=== PATIENT | male | born 1960 | race Caucasian/White ===

== ENCOUNTER → 2016-03-21 | Outpatient (CLI) | payer OTHER ==
[~2016-03-21] VITALS: Ht 162.6 cm; Wt 84.8 kg
[~2016-03-21] MED LIST: ALBU17IN INH; AMBI10TA PO; DOXA1TAB40 PO; IRON65TA PO; LIDOCAINE 2% INJ 100 MG/5 ML SDV (FOR ANES.) As Ordered ONE; LORA2CON5 PO; NS 1,000 ML IV SCH; OMEP10CASR PO; PARO20TA2 PO; PENT500C PO; PROPOFOL 200 MG/20 ML VIAL As Ordered ONE; SING10TA32 PO
--- NOTE | 2016-03-21 11:31 | ROOR ---
Patient Name: Ron Sanchez Procedure Date: 03/21/2016 11:19 AM Date of : 1960 Age: 56 Room: [facility] Gender: Male Note Status: Finalized Procedure: Upper GI endoscopy Indications: Dysphagia, Heartburn Providers: Herson ELLIOTT MD Referring MD: Lorne Arteaga MD Requesting Provider: Medicines: Monitored Anesthesia Care Complications: No immediate complications. Procedure: Pre-Anesthesia Assessment: - The heart rate, respiratory rate, oxygen saturations, blood pressure, adequacy of pulmonary ventilation, and response to care were monitored throughout the procedure. The Endoscope was introduced through the mouth, and advanced to the second part of duodenum. The upper GI endoscopy was accomplished without difficulty. The patient tolerated the procedure well. Findings: The Z-line was variable and was found 33 cm from the incisors. This was biopsied with a cold forceps for histology. A large hiatus hernia was present. The entire examined stomach was normal. The examined duodenum was normal. Impression: - Z-line variable, 33 cm from the incisors. Biopsied. - Large hiatus hernia. - Normal stomach. - Normal examined duodenum. Recommendation: - Continue present medications. - Telephone endoscopist for pathology results in 2 weeks. Herson Elliott MD Herson ELLIOTT MD 03/21/2016 11:30:50 AM This report has been signed electronically. Number of Addenda: 0 Note Initiated On: 03/21/2016 11:19 AM Estimated Blood Loss: Estimated blood loss: none.
--- NOTE | 2016-03-21 11:52 | ROOR ---
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 Procedure: Pre-Anesthesia Assessment: - The heart rate, respiratory rate, oxygen saturations, blood pressure, adequacy of pulmonary ventilation, and response to care were monitored throughout the procedure. The Colonoscope was introduced through the anus and advanced to the cecum, identified by appendiceal orifice and ileocecal valve. The colonoscopy was performed without difficulty. The patient tolerated the procedure well. The quality of the bowel preparation was inadequate. Findings: The perianal and digital rectal examinations were normal. (Colon Prep was POOR, Inadequate Visualisation) A 13 mm polypoid lesion was found in the sigmoid colon. The lesion was semi-pedunculated. This was biopsied with a cold forceps for histology. Multiple small and large-mouthed diverticula were found in the sigmoid colon. There was evidence of diverticular spasm. Inflammation characterized by erythema and friability was found in a continuous and circumferential pattern from the rectum to the descending colon. This was moderate in severity. Impression: - Preparation of the colon was inadequate. - A lipoma was seen in the proximal sigmoid colon. - Likely benign inflammatory polypoid lesion in the mid/distal sigmoid colon. Biopsied. - Moderate diverticulosis in the sigmoid colon. There was evidence of diverticular spasm. - Inflammation was found from the rectum to the descending colon secondary to proctosigmoid ulcerative colitis. Recommendation: - If the pathology report is benign, then repeat colonoscopy because the bowel preparation was suboptimal in 1 year. - Continue present medications. Herson Elliott MD Herson ELLIOTT MD 03/21/2016 11:51:53 AM This report has been signed electronically. Number of Addenda: 0 Note Initiated On: 03/21/2016 11:20 AM Estimated Blood Loss: Estimated blood loss: none.
[2016-03-21 12:10] VITALS: BP 131/65
== END | disposition home or self-care (01) ==
LOC: M OPP 09:55
PROVIDERS: ATTEND Internal Medicine Gastroenterology
DX: K51.30 Ulcerative (chronic) rectosigmoiditis without complications (principal); D12.5 Benign neoplasm of sigmoid colon; K57.30 Diverticulosis of large intestine without perforation or abscess without bleeding; R12 Heartburn; K22.8 Other specified diseases of esophagus; K44.9 Diaphragmatic hernia without obstruction or gangrene; M19.90 Unspecified osteoarthritis, unspecified site; F33.9 Major depressive disorder, recurrent, unspecified; J45.909 Unspecified asthma, uncomplicated; N40.0 Benign prostatic hyperplasia without lower urinary tract symptoms; Z79.899 Other long term (current) drug therapy; Z79.51 Long term (current) use of inhaled steroids

== ENCOUNTER → 2016-05-10 | Outpatient (CLI) | payer MEDICAID ==
[~2016-05-10] MED LIST changes: -LIDOCAINE 2% INJ 100 MG/5 ML SDV (FOR ANES.) As Ordered ONE; -NS 1,000 ML IV SCH; -PROPOFOL 200 MG/20 ML VIAL As Ordered ONE
== END ==
LOC: M OUTALCOH 13:52
PROVIDERS: ATTEND Psychiatry & Neurology Psychiatry
DX: Z13.9 Encounter for screening, unspecified (principal); F10.20 Alcohol dependence, uncomplicated

== ENCOUNTER → 2017-01-13 | Outpatient (CLI) | payer MEDICAID, OTHER ==
[~2017-01-13] MED LIST changes: -PARO20TA2 PO; +PARO20TA3 PO
--- NOTE | 2017-01-13 16:32 | REP ---
FACIAL BONES, FOUR VIEWS: HISTORY: Facial pain. COMPARISON: 08/16/2014. There is no acute fracture or bone lesion. The sinuses are clear. The patient is edentulous. The temporomandibular joints are not seen. IMPRESSION: There is no acute fracture or bone lesion.
== END ==
LOC: M CLY 14:24
PROVIDERS: ATTEND Family Medicine
DX: R51 Headache (principal)

== ENCOUNTER → 2017-03-21 | Outpatient (CLI) | payer OTHER | LOC: M ADMPAT 10:12 | DX: R12 Heartburn (principal); R13.10 Dysphagia, unspecified ==

== ENCOUNTER 2017-03-25 10:11 | Day surgery (SDC) | payer OTHER ==
[2017-03-25] MEDS: NS 1,000 ML IV (10:45)
[2017-03-25] MEDS ORDERED: PROPOFOL 200 MG/20 ML VIAL As Ordered (11:15)
[2017-03-25] MEDS ORDERED: LIDOCAINE 2% INJ 100 MG/5 ML SDV (FOR ANES.) As Ordered (11:15)
== END 2017-03-25 13:19 | disposition home or self-care (01) ==
LOC: M OPP 10:11
DX: K92.1 Melena (principal); Z86.010 Personal history of colon polyps; K51.40 Inflammatory polyps of colon without complications; K51.20 Ulcerative (chronic) proctitis without complications; K57.30 Diverticulosis of large intestine without perforation or abscess without bleeding; R12 Heartburn; R13.13 Dysphagia, pharyngeal phase; R13.12 Dysphagia, oropharyngeal phase; K22.70 Barrett's esophagus without dysplasia; K44.9 Diaphragmatic hernia without obstruction or gangrene; K21.9 Gastro-esophageal reflux disease without esophagitis; D64.9 Anemia, unspecified; M19.90 Unspecified osteoarthritis, unspecified site; M54.9 Dorsalgia, unspecified; F32.9 Major depressive disorder, single episode, unspecified; F41.9 Anxiety disorder, unspecified; J45.909 Unspecified asthma, uncomplicated; R06.83 Snoring; R06.02 Shortness of breath; N40.0 Benign prostatic hyperplasia without lower urinary tract symptoms; Z79.899 Other long term (current) drug therapy; Z80.0 Family history of malignant neoplasm of digestive organs
CPT/HCPCS: 45380

== ENCOUNTER 2017-08-09 20:21 | Emergency (ER) | payer OTHER ==
[2017-08-09] MEDS: NORCO 5/325MG TABLET (BULK FOR ED) PO (22:58)
== END 2017-08-09 23:02 | disposition home or self-care (01) ==
LOC: M ED 20:21
DX: S33.8XXA Sprain of other parts of lumbar spine and pelvis, initial encounter (principal); S20.229A Contusion of unspecified back wall of thorax, initial encounter; W01.10XA Fall on same level from slipping, tripping and stumbling with subsequent striking against unspecified object, initial encounter; Y92.9 Unspecified place or not applicable; Y93.89 Activity, other specified; Y99.9 Unspecified external cause status; J30.2 Other seasonal allergic rhinitis; J45.909 Unspecified asthma, uncomplicated; K57.92 Diverticulitis of intestine, part unspecified, without perforation or abscess without bleeding; N40.0 Benign prostatic hyperplasia without lower urinary tract symptoms; M79.9 Soft tissue disorder, unspecified; D75.9 Disease of blood and blood-forming organs, unspecified; F41.9 Anxiety disorder, unspecified; F32.9 Major depressive disorder, single episode, unspecified; Z79.899 Other long term (current) drug therapy
CPT/HCPCS: 72110

== ENCOUNTER → 2017-08-15 | Outpatient (CLI) | payer OTHER | LOC: M RAD 14:39 | DX: J32.0 Chronic maxillary sinusitis (principal); J34.2 Deviated nasal septum | CPT/HCPCS: 70486 ==

== ENCOUNTER → 2018-01-28 | Outpatient (CLI) | payer OTHER ==
[2018-01-28 12:03] LABS: BASO % 0.6 % (0.0-1.0); EOS # 0.2 10^3/uL (0.0-0.50); EOS % 3.3 % (0.0-3.0); HEMATOCRIT 37.6 % (42.0-52.0); HEMOGLOBIN 12.2 g/dl (13.5-17.5); IMMATURE GRANULOCYTE % 0.4 % (0-3.0); LYMPH # 1.1 10^3/uL (1.5-4.5); MEAN CORPUSCULAR HGB CONC 32.4 g/dl (32.0-36.5); MEAN CORPUSCULAR VOLUME 86.2 fl (80.0-96.0); MONO # 0.5 10^3/uL (0.0-0.8); NEUTROPHILS # 3.4 10^3/uL (1.8-7.7); NEUTROPHILS % 64.7 % (36.0-66.0); PLATELET COUNT, AUTOMATED 229 10^3/uL (150-450); RED BLOOD COUNT 4.36 10^6/uL (4.30-6.10); RED CELL DISTRIBUTION WIDTH 13.6 % (11.5-14.5); WHITE BLOOD COUNT 5.2 10^3/uL (4.0-10.0)
[2018-01-28 12:26] LABS: ALBUMIN 3.3 GM/DL (3.2-5.2); ALBUMIN/GLOBULIN RATIO 1.06 (1.00-1.93); ALKALINE PHOSPHATASE 98 U/L (45-117); ALT/SGPT 40 U/L (12-78); ANION GAP 7 MEQ/L (8-16); AST/SGOT 21 U/L (7-37); BILIRUBIN,TOTAL 0.4 MG/DL (0.2-1.0); BLOOD UREA NITROGEN 9 MG/DL (7-18); C REACTIVE PROTEIN QUANTITATIV < 0.30 MG/DL (0.00-0.30); CARBON DIOXIDE LEVEL 27 MEQ/L (21-32); CHLORIDE LEVEL 107 MEQ/L (98-107); CREATININE FOR GFR 0.85 MG/DL (0.70-1.30); GLOMERULAR FILTRATION RATE > 60.0 (>56); GLUCOSE, FASTING 94 MG/DL (70-100); MAGNESIUM LEVEL 2.1 MG/DL (1.8-2.4); POTASSIUM SERUM 4.3 MEQ/L (3.5-5.1); SODIUM LEVEL 141 MEQ/L (136-145); TOTAL PROTEIN 6.4 GM/DL (6.4-8.2)
[2018-01-28 12:41] LABS: ERYTHROCYTE SEDIMENTATION RATE 10 mm/hr (0-20)
== END ==
LOC: M LAB 10:55
DX: K51.30 Ulcerative (chronic) rectosigmoiditis without complications (principal)
CPT/HCPCS: 83735

== ENCOUNTER 2018-03-26 10:43 | Day surgery (SDC) | payer OTHER ==
[~2018-03-26] VITALS: Ht 162.6 cm; Wt 91.1 kg
[~2018-03-26 10:43] MED LIST changes: +ACAM0.05 PO; +AMOX500C PO; +APRI0.37 PO; +ATIV1TAB10 PO; +BUPR150T3 PO; +CARB20TA PO; +DEXI60CA2 PO; +FLOM0.4C39 PO; +FLON1SPR; +GABA-843 PO; +HYDR-3713 PO; +IMOD2TAB16 PO; +LIDOCAINE 2% INJ 100 MG/5 ML SDV (FOR ANES.) As Ordered ONE; +LORA-243 PO; +MELO15TA28 PO; +METH4PACK PO; +NYST50SS SS; +PROPOFOL 200 MG/20 ML VIAL As Ordered ONE; +REXU1TAB3 PO; +TRAZ-163 PO; +TRAZ1TAB14 PO; +VIIB40TA PO
[2018-03-26] MEDS ORDERED: NS 1,000 ML IV ONE (11:30)
--- NOTE | 2018-03-26 11:52 | ROOR ---
Patient Name: Ron Sanchez Procedure Date: 03/26/2018 11:37 AM Date of : 1960 Age: 58 Room: [facility] Gender: Male Note Status: Finalized Procedure: Upper GI endoscopy Indications: Surveillance for malignancy due to personal history of Dimas's esophagus, Heartburn Providers: Herson ALCOCER MD Referring MD: Lorne Arteaga MD Requesting Provider: Medicines: Monitored Anesthesia Care Complications: No immediate complications. Procedure: Pre-Anesthesia Assessment: - The heart rate, respiratory rate, oxygen saturations, blood pressure, adequacy of pulmonary ventilation, and response to care were monitored throughout the procedure. The Endoscope was introduced through the mouth, and advanced to the second part of duodenum. The upper GI endoscopy was accomplished without difficulty. The patient tolerated the procedure well. Findings: The Z-line was variable and was found 30 cm from the incisors. This was biopsied with a cold forceps for histology. A large hiatal hernia was found. The proximal extent of the gastric folds (end of tubular esophagus) was 30 cm from the incisors. The Z-line was a variable distance from incisors; the hiatal hernia was sliding. The exam of the stomach was otherwise normal. The examined duodenum was normal. Impression: - Z-line variable, 30 cm from the incisors. Biopsied. - Large hiatal hernia. - Stomach is otherwise normal. - Normal examined duodenum. Recommendation: - Continue present medications. - Repeat upper endoscopy in 3 years for surveillance. Herson Alcocer MD Herson ALCOCER MD 03/26/2018 11:51:31 AM This report has been signed electronically. Number of Addenda: 0 Note Initiated On: 03/26/2018 11:37 AM Estimated Blood Loss: Estimated blood loss: none.
[2018-03-26] MEDS ORDERED: PROPOFOL 200 MG/20 ML VIAL As Ordered ONE ×2 (11:56→12:08)
--- NOTE | 2018-03-26 12:20 | ROOR ---
Patient Name: Ron Sanchez Procedure Date: 03/26/2018 11:38 AM Date of : 1960 Age: 58 Room: [facility] Gender: Male Note Status: Finalized Procedure: Colonoscopy Indications: Hematochezia, Follow-up of chronic ulcerative proctosigmoiditis Providers: Herson ELLIOTT MD Referring MD: Lorne Arteaga MD Requesting Provider: Medicines: Monitored Anesthesia Care Complications: No immediate complications. Procedure: Pre-Anesthesia Assessment: - The heart rate, respiratory rate, oxygen saturations, blood pressure, adequacy of pulmonary ventilation, and response to care were monitored throughout the procedure. The Colonoscope was introduced through the anus and advanced to 15 cm into the ileum. The colonoscopy was performed without difficulty. The patient tolerated the procedure well. The quality of the bowel preparation was good. Findings: The perianal and digital rectal examinations were normal. Inflammation characterized by erythema was found in a continuous and circumferential pattern from the anus to the sigmoid colon. This was mild in severity, and when compared to previous examinations, the findings are quiescent. Biopsies were taken with a cold forceps for histology. A large polypoid lesion was found in the sigmoid colon. The lesion was semi-pedunculated. This was biopsied with a cold forceps for histology. The exam was otherwise normal throughout the examined colon. The terminal ileum appeared normal. Impression: - Proctosigmoid colitis. Inflammation was found from the anus to the mid sigmoid colon. This was mild in severity, quiescent compared to previous examinations. Biopsied. - Likely benign thick stalked prolapsing hemorrhagic pseudopolyp (2 cm) or inflamed lipoma in the sigmoid colon. Biopsied. - Diverticulosis in sigmoid colon. - Small Lipoma distal descending colon. - The examined portion of the ileum was normal. Recommendation: - Telephone endoscopist for pathology results in 2 weeks. Herson Elliott MD Herson ELLIOTT MD 03/26/2018 12:20:21 PM This report has been signed electronically. Number of Addenda: 0 Note Initiated On: 03/26/2018 11:38 AM Estimated Blood Loss: Estimated blood loss: none.
[2018-03-26 12:45] VITALS: BP 117/68
== END 2018-03-26 12:48 | disposition home or self-care (01) ==
LOC: M OPP 10:43
PROVIDERS: ATTEND Internal Medicine Gastroenterology
DX: K52.9 Noninfective gastroenteritis and colitis, unspecified (principal); D49.0 Neoplasm of unspecified behavior of digestive system; K92.1 Melena; K51.30 Ulcerative (chronic) rectosigmoiditis without complications; K22.8 Other specified diseases of esophagus; K44.9 Diaphragmatic hernia without obstruction or gangrene; K22.70 Barrett's esophagus without dysplasia; R12 Heartburn; Z79.82 Long term (current) use of aspirin; Z79.899 Other long term (current) drug therapy

== ENCOUNTER → 2018-04-29 | Outpatient (CLI) | payer OTHER ==
[~2018-04-29] MED LIST changes: -LIDOCAINE 2% INJ 100 MG/5 ML SDV (FOR ANES.) As Ordered ONE; -PROPOFOL 200 MG/20 ML VIAL As Ordered ONE
[2018-04-29 13:36] LABS: HEMATOCRIT 38.3 % (42.0-52.0); MEAN CORPUSCULAR HEMOGLOBIN 26.1 pg (27.0-33.0); MEAN CORPUSCULAR HGB CONC 31.3 g/dl (32.0-36.5); MEAN CORPUSCULAR VOLUME 83.4 fl (80.0-96.0); PLATELET COUNT, AUTOMATED 235 10^3/uL (150-450); RED BLOOD COUNT 4.59 10^6/uL (4.30-6.10); WHITE BLOOD COUNT 6.2 10^3/uL (4.0-10.0)
[2018-04-29 13:52] LABS: PERCENT SATURATION 12.8 % (19.7-50.0)
== END ==
LOC: M LAB 12:31
PROVIDERS: ATTEND Physician Assistant Medical
DX: D64.9 Anemia, unspecified (principal)

== ENCOUNTER → 2018-05-13 | Outpatient (CLI) | payer OTHER ==
[~2018-05-13] MED LIST changes: +GLUCAGON FOR INJ 1 MG VIAL (J1610) As Ordered ONE; +ISOVUE-370 76% 100ML VIAL (Q9967) As Ordered ONE; +VoLumen 0.1% SUSPENSION 450ML BOTTLE As Ordered ONE
--- NOTE | 2018-05-14 04:39 | REP ---
Clinical: Anemia. Technique: Axial contrast enhanced images with coronal and sagittal re-formations using enterography protocol including 100 ml Isovue 370 intravenous contrast material and low density oral intraluminal contrast. Findings: A moderate gastroesophageal hiatal hernia is identified. There is no evidence for bowel obstruction or acute inflammatory process. Diffuse colonic and predominantly sigmoid diverticulosis noted without evidence for acute diverticulitis. Normal cecum, terminal ileum, and appendix are identified in the right lower quadrant. Mucosal thickening involving the mid sigmoid colon (images [id number]) cannot be excluded and may warrant colonoscopy evaluation. 3.2 cm hepatic cyst identified in the left lobe. Spleen, pancreas, gallbladder, bilateral adrenal glands and kidneys are normal. Pelvis demonstrates normal bladder and age appropriate prostate/seminal vesicles with parenchymal calcifications noted. 3 cm fat containing periumbilical hernia identified along with small forming fat containing inguinal hernia (left greater than right). No ascites. No free air. No significant adenopathy. Abdominal aorta without aneurysm or dissection. Musculoskeletal structures appear intact and without focal osseous abnormality. Impression: 1. Moderate hiatal hernia. 2. Colonic and predominantly sigmoid diverticulosis without acute diverticulitis. 3. Mucosal thickening involving the mid sigmoid colon cannot be excluded and may warrant colonoscopy evaluation. 4. 3.2 cm benign appearing hepatic cyst may be followed by ultrasound. 5. Fat containing periumbilical hernia and subtle forming fat containing inguinal hernias (left greater than right). Electronically Signed by Edvin Garland MD 05/14/2018 04:30 A
== END ==
LOC: M RAD 11:27
PROVIDERS: ATTEND Physician Assistant Medical
DX: K44.9 Diaphragmatic hernia without obstruction or gangrene (principal); K57.90 Diverticulosis of intestine, part unspecified, without perforation or abscess without bleeding; K57.92 Diverticulitis of intestine, part unspecified, without perforation or abscess without bleeding; K42.9 Umbilical hernia without obstruction or gangrene; K40.90 Unilateral inguinal hernia, without obstruction or gangrene, not specified as recurrent; K76.89 Other specified diseases of liver; D64.9 Anemia, unspecified; K51.30 Ulcerative (chronic) rectosigmoiditis without complications
CPT/HCPCS: 74177; J1610; Q9967

== ENCOUNTER → 2018-10-19 | Outpatient (CLI) | payer OTHER ==
[~2018-10-19] MED LIST changes: -GLUCAGON FOR INJ 1 MG VIAL (J1610) As Ordered ONE; -ISOVUE-370 76% 100ML VIAL (Q9967) As Ordered ONE; -VoLumen 0.1% SUSPENSION 450ML BOTTLE As Ordered ONE
--- NOTE | 2018-10-19 19:30 | REP ---
REASON: Increasing shoulder pain. No trauma what so ever. PRIORS: None. There is mild AC joint DJD with slight asymmetric joint space narrowing. The glenohumeral relationship is within normal limits. There is no fracture, dislocation or subluxation. IMPRESSION:Chronic changes as described above. Electronically Signed by Tony Torres DO 10/20/2018 11:24 A
--- NOTE | 2018-10-20 09:31 | REP ---
REASON: Increasing neck pain. No trauma whatsoever. COMPARISON: 04/14/2009. Degenerative disc space narrowing is seen at every level. This has increased from the prior exam. There is anterior and posterior osteophytic ridging particularly at the C4-5 and C6-7 levels. This has increased. Even with the swimmers view the C7-T1 level cannot well assessed. The facet joints appear to be well aligned bilaterally. The intervertebral foramina are ample bilaterally. Flexion and extension is not particularly limited radiographically. The dens cannot be effectively evaluated secondary to the superimposition of osseous structures and/or dentition on all views. Although this plain radiographic evaluation of the cervical spine shows no evidence of a fracture, it should be remembered that CT is much more sensitive than plain radiography of the C-spine in detecting fractures. If this examination was ordered to rule out a fracture, then CT of the cervical spine is recommended. IMPRESSION: Chronic changes as described above. Electronically Signed by Tony Torres DO 10/20/2018 11:27 A
== END ==
LOC: M CLY 14:56
PROVIDERS: ATTEND Family Medicine
DX: M25.78 Osteophyte, vertebrae (principal); M25.712 Osteophyte, left shoulder

== ENCOUNTER → 2018-11-19 | Outpatient (CLI) | payer OTHER ==
--- NOTE | 2018-11-19 09:16 | REP ---
Clinical: Hepatic cystic disease. Technique: Real time watkins scale ultrasound examination using curved array transducer. Findings: A solitary simple appearing cyst is identified in the left hepatic lobe. 3.2 x 2.6 x 3.4 cm. No further hepatic lesion identified. Visualized portions of the pancreas are normal but limited due to interposed bowel gas. Gallbladder demonstrates layering sludge and small stones without wall thickening or pericholecystic fluid. No biliary ductal dilatation is appreciated and the common bile duct measures 4.6 mm diameter. The right kidney is normal in reniform shape without hydronephrosis and measures 10.2 x 5.9 x 5.3 cm. No ascites in the visualized right upper quadrant. Impression: 1. 3.4 cm hepatic cyst appears benign. 2. Cholelithiasis. Electronically Signed by Edvin Garland MD 11/19/2018 07:47 A
== END ==
LOC: M RAD 06:49
PROVIDERS: ATTEND Physician Assistant Medical
DX: Q44.6 Cystic disease of liver (principal)

== ENCOUNTER → 2018-11-25 | Outpatient (REF) | payer OTHER | LOC: M LAB REF 13:32 | PROVIDERS: ATTEND Internal Medicine Gastroenterology | DX: K51.319 Ulcerative (chronic) rectosigmoiditis with unspecified complications (principal) ==

== ENCOUNTER 2019-04-15 10:52 | Outpatient (CLI) | payer MEDICAID ==
[~2019-04-15] VITALS: Ht 162.6 cm; Wt 93.4 kg
[~2019-04-15 10:52] MED LIST changes: -TRAZ-163 PO; +TRAZ-257 PO
[2019-04-15 11:10] VITALS: BP 109/70
[2019-04-15] MEDS ORDERED: VEDOLIZUMAB 300 MG in NS 250 ML IV ONE (11:30)
[2019-04-15 12:30] VITALS: BP 116/67
== END 2019-04-15 12:30 | disposition home or self-care (01) ==
LOC: M INFU 10:52
PROVIDERS: ATTEND Internal Medicine Gastroenterology
DX: K51.90 Ulcerative colitis, unspecified, without complications (principal)
CPT/HCPCS: 96365; J3380

== ENCOUNTER 2019-05-17 10:28 | Outpatient (CLI) | payer OTHER ==
[~2019-05-17] VITALS: Ht 162.6 cm; Wt 93.4 kg
[2019-05-17 11:00] VITALS: BP 126/83
[2019-05-17] MEDS ORDERED: VEDOLIZUMAB 300 MG in NS 250 ML IV ONE (11:00)
[2019-05-17 12:12] VITALS: BP 128/69
== END 2019-05-17 12:15 | disposition home or self-care (01) ==
LOC: M INFU 10:28
PROVIDERS: ATTEND Internal Medicine Gastroenterology
DX: K51.90 Ulcerative colitis, unspecified, without complications (principal)
CPT/HCPCS: 96365; J3380

== ENCOUNTER → 2019-09-06 | Outpatient (CLI) | payer OTHER ==
[~2019-09-06] MED LIST changes: +DULO1CAP5 PO; +ENTY1INJ IV; +LOPE-39 PO; +VEDOLIZUMAB 300 MG in NS 250 ML IV ONE; +VENTAER INH
== END ==
LOC: M INFU 13:59
PROVIDERS: ATTEND Internal Medicine Gastroenterology
DX: K51.90 Ulcerative colitis, unspecified, without complications (principal); Z53.9 Procedure and treatment not carried out, unspecified reason

== ENCOUNTER 2019-09-13 10:07 | Outpatient (CLI) | payer OTHER ==
[~2019-09-13 10:07] MED LIST changes: -DULO1CAP5 PO; -LOPE-39 PO; -VEDOLIZUMAB 300 MG in NS 250 ML IV ONE; -VENTAER INH
[2019-09-13 11:02] VITALS: BP 122/58
[2019-10-28] MEDS ORDERED: APRI0.37 PO (15:11)
[2019-10-28] MEDS ORDERED: DULO1CAP5 PO (15:11)
[2019-10-28] MEDS ORDERED: VENTAER INH (15:11)
[2019-10-28] MEDS ORDERED: REXU1TAB3 PO (15:11)
[2019-10-28] MEDS ORDERED: LOPE-39 PO (15:11)
[2019-10-28] MEDS ORDERED: BUPR150T3 PO (15:11)
== END 2019-09-13 10:40 | disposition home or self-care (01) ==
LOC: M INFU 10:07
PROVIDERS: ATTEND Internal Medicine Gastroenterology
DX: K51.90 Ulcerative colitis, unspecified, without complications (principal)

== ENCOUNTER → 2019-10-24 | Outpatient (CLI) | payer OTHER ==
[~2019-10-24] MED LIST changes: +DULO1CAP5 PO; +LOPE-39 PO; +VENTAER INH
== END ==
LOC: M LABSMTC 10:20
PROVIDERS: ATTEND Anesthesiology
DX: Z11.59 Encounter for screening for other viral diseases (principal)
CPT/HCPCS: C9803; U0003

== ENCOUNTER 2019-10-29 12:38 | Day surgery (SDC) | payer OTHER ==
[~2019-10-29] VITALS: Ht 162.6 cm; Wt 92.9 kg
[~2019-10-29 12:38] MED LIST changes: +NS 1,000 ML IV ONE
[2019-10-29] MEDS ORDERED: fentaNYL 100 MCG/2 ML INJECTION (J3010) As Ordered ONE (13:55)
[2019-10-29] MEDS ORDERED: propofoL 200 MG/20 ML VIAL As Ordered ONE (13:55)
[2019-10-29] MEDS ORDERED: LIDOCAINE 2% 100MG/5ML SDV (FOR ANES.) As Ordered ONE (13:55)
[2019-10-29 14:44] VITALS: BP 133/86
--- NOTE | 2019-11-10 11:36 | ROOR ---
Patient Name: Ron Sanchez Procedure Date: 10/29/2019 10:04 AM Date of : 1960 Age: 59 Room: [facility] Gender: Male Note Status: Finalized Procedure: Upper GI endoscopy Indications: Oropharyngeal phase dysphagia, Heartburn Providers: Herson ALCOCER MD Referring MD: Tacho Causey MD Requesting Provider: Medicines: Monitored Anesthesia Care Complications: No immediate complications. Procedure: Pre-Anesthesia Assessment: - The heart rate, respiratory rate, oxygen saturations, blood pressure, adequacy of pulmonary ventilation, and response to care were monitored throughout the procedure. The Endoscope was introduced through the mouth, and advanced to the second part of duodenum. The upper GI endoscopy was accomplished without difficulty. The patient tolerated the procedure well. Findings: The Z-line was variable and was found at the gastroesophageal junction. This was biopsied with a cold forceps for histology. No endoscopic abnormality was evident in the esophagus to explain the patient's complaint of dysphagia. It was decided, however, to proceed with dilation at the cricopharyngeus. The scope was withdrawn. Dilation was performed with a Santiago dilator with no resistance at 54 Fr. A large hiatal hernia was present. The entire examined stomach was normal. The examined duodenum was normal. Impression: - No endoscopic esophageal abnormality to explain patient's dysphagia. Upper Esophagus dilated with 54 F Santiago dilator. - Z-line variable, at the gastroesophageal junction at 30 cm from incisors. Biopsied. - Large hiatal hernia. - Otherwise normal stomach. - Normal examined duodenum. Recommendation: - Continue present medications. - Follow an antireflux regimen. - -Chew food well, use well fitting dentures at all times when eating. - Repeat upper endoscopy in 3 years for surveillance of Dimas's esophagus. Herson ALCOCER MD 10/29/2019 2:15:37 PM Number of Addenda: 0 Note Initiated On: 10/29/2019 10:04 AM Estimated Blood Loss: Estimated blood loss: none.
== END 2019-10-29 18:25 | disposition home or self-care (01) ==
LOC: M OPP 12:38
PROVIDERS: ATTEND Internal Medicine Gastroenterology
DX: K22.8 Other specified diseases of esophagus (principal); K44.9 Diaphragmatic hernia without obstruction or gangrene; R13.12 Dysphagia, oropharyngeal phase; R12 Heartburn; Z79.899 Other long term (current) drug therapy
CPT/HCPCS: 43239; 43450; 88305; J3010

== ENCOUNTER 2019-11-09 12:00 | Outpatient (CLI) | payer OTHER ==
[~2019-11-09] VITALS: Ht 175.3 cm; Wt 91.7 kg
[~2019-11-09 12:00] MED LIST changes: -NS 1,000 ML IV ONE
[2019-11-09 12:10] VITALS: BP 144/74
[2019-11-09] MEDS ORDERED: VEDOLIZUMAB 300 MG in NS 250 ML IV ONE (12:30)
[2019-11-09 13:35] VITALS: BP 134/69
== END 2019-11-09 13:35 | disposition home or self-care (01) ==
LOC: M INFU 12:00
PROVIDERS: ATTEND Internal Medicine Gastroenterology
DX: K51.90 Ulcerative colitis, unspecified, without complications (principal)
CPT/HCPCS: 96365; J3380

== ENCOUNTER → 2019-11-23 | Outpatient (CLI) | payer OTHER ==
--- NOTE | 2019-12-01 09:39 | REP ---
LIVER ULTRASOUND CLINICAL: Hepatic cyst. COMPARISON: 11/19/2018. TECHNIQUE: Real-time watkins scale ultrasound examination using curved array transducer. FINDINGS: Liver demonstrates increased echogenicity suggesting fatty infiltration and relatively stable 2.5 cm cyst in the left lobe. The pancreas is incompletely evaluated due to interposed bowel gas, but visualized portions appear normal. The gallbladder is unremarkable and without gallstones, wall thickening, or pericholecystic fluid. No biliary ductal dilatation is appreciated and the common bile duct measures 5 mm in diameter. The right kidney is normal in reniform shape without hydronephrosis and measures 10.6 x 5.4 x 5.1 cm. No ascites in the visualized right upper quadrant. IMPRESSION: * A 2.5 cm hepatic cyst and suggested hepatosteatosis similar to prior examination. * Normal gallbladder without evidence for cholelithiasis. MTDD
== END ==
LOC: M RAD 08:24
PROVIDERS: ATTEND Physician Assistant Medical
DX: Q44.6 Cystic disease of liver (principal)

== ENCOUNTER 2020-01-04 11:23 | Outpatient (CLI) | payer OTHER ==
[~2020-01-04] VITALS: Ht 175.3 cm; Wt 91.7 kg
[2020-01-04 11:34] VITALS: BP 133/83
[2020-01-04 11:40] VITALS: BP 133/83
[2020-01-04] MEDS ORDERED: VEDOLIZUMAB 300 MG in NS 250 ML IV ONE (12:30)
[2020-01-04 12:45] VITALS: BP 142/69
== END 2020-01-04 12:45 | disposition home or self-care (01) ==
LOC: M INFU 11:23
PROVIDERS: ATTEND Internal Medicine Gastroenterology
DX: K51.90 Ulcerative colitis, unspecified, without complications (principal)
CPT/HCPCS: 96365; J3380

== ENCOUNTER 2020-02-29 12:34 | Outpatient (CLI) | payer OTHER ==
[~2020-02-29] VITALS: Ht 162.6 cm; Wt 96.6 kg
[~2020-02-29 12:34] MED LIST changes: +VEDOLIZUMAB 300 MG in NS 250 ML IV ONE
[2020-02-29 13:00] VITALS: BP 130/73
[2020-02-29 14:02] VITALS: BP 122/77
== END 2020-02-29 14:04 | disposition home or self-care (01) ==
LOC: M INFU 12:34
PROVIDERS: ATTEND Internal Medicine Gastroenterology
DX: K51.90 Ulcerative colitis, unspecified, without complications (principal)
CPT/HCPCS: 96365; J3380

== ENCOUNTER 2020-04-25 11:53 | Outpatient (CLI) | payer OTHER ==
[~2020-04-25] VITALS: Ht 162.6 cm; Wt 96.6 kg
[~2020-04-25 11:53] MED LIST changes: -BUPR150T3 PO; +BUPR150T4 PO; +GABA-282 PO; -GABA-843 PO; -VEDOLIZUMAB 300 MG in NS 250 ML IV ONE
[2020-04-25 12:06] VITALS: BP 135/69
[2020-04-25] MEDS ORDERED: VEDOLIZUMAB 300 MG in NS 250 ML IV ONE (12:30)
[2020-04-25 13:35] VITALS: BP 113/64
== END 2020-04-25 13:35 | disposition home or self-care (01) ==
LOC: M INFU 11:53
PROVIDERS: ATTEND Internal Medicine Gastroenterology
DX: K51.90 Ulcerative colitis, unspecified, without complications (principal)
CPT/HCPCS: 96365; J3380

== ENCOUNTER 2020-08-15 11:58 | Outpatient (CLI) | payer OTHER ==
[~2020-08-15] VITALS: Ht 162.6 cm; Wt 96.6 kg
[~2020-08-15 11:58] MED LIST changes: +BUPR150T12 PO; -BUPR150T4 PO
[2020-08-15] MEDS ORDERED: VEDOLIZUMAB 300 MG in NS 250 ML IV ONE (12:30)
[2020-08-15 12:42] VITALS: BP 132/76
[2020-08-15 12:44] VITALS: BP 132/76
[2020-08-15 13:41] VITALS: BP 141/80
== END 2020-08-15 13:45 | disposition home or self-care (01) ==
LOC: M INFU 11:58
PROVIDERS: ATTEND Internal Medicine Gastroenterology
DX: K51.90 Ulcerative colitis, unspecified, without complications (principal)
CPT/HCPCS: 96365; J3380

== ENCOUNTER 2021-01-16 11:55 | Outpatient (CLI) | payer OTHER ==
[~2021-01-16] VITALS: Ht 170.2 cm; Wt 96.6 kg
[2021-01-16 12:23] VITALS: BP 148/89
[2021-01-16] MEDS ORDERED: VEDOLIZUMAB 300 MG in NS 250 ML IV ONE (13:30)
[2021-01-16 13:35] VITALS: BP 137/80
== END 2021-01-16 13:35 | disposition home or self-care (01) ==
LOC: M INFU 11:55
PROVIDERS: ATTEND Internal Medicine Gastroenterology
DX: K51.90 Ulcerative colitis, unspecified, without complications (principal)
CPT/HCPCS: 96365; J3380

== ENCOUNTER 2021-06-10 14:49 | Emergency (ER) | payer OTHER ==
[~2021-06-10] VITALS: Ht 162.6 cm; Wt 93.1 kg
[2021-06-10 17:20] LABS: HEMATOCRIT 36.7 % (42.0-52.0); MEAN CORPUSCULAR HEMOGLOBIN 22.3 pg (27.0-33.0); MEAN CORPUSCULAR VOLUME 74.3 fl (80.0-96.0); PLATELET COUNT, AUTOMATED 394 10^3/uL (150-450); RED BLOOD COUNT 4.94 10^6/uL (4.30-6.10); WHITE BLOOD COUNT 10.3 10^3/uL (4.0-10.0)
[2021-06-10 17:51] LABS: AMPHETAMINES LEVEL URINE NEGATIVE (NEGATIVE); BARBITURATES URINE NEGATIVE (NEGATIVE); BENZODIAZEPINES URINE NEGATIVE (NEGATIVE); CANNABINOIDS URINE NEGATIVE (NEGATIVE); COCAINE METABOLITE URINE NEGATIVE (NEGATIVE); METHADONE URINE NEGATIVE (NEGATIVE); OPIATES URINE NEGATIVE (NEGATIVE); PHENCYCLIDINE URINE NEGATIVE (NEGATIVE)
[2021-06-10 18:01] LABS: ACETAMINOPHEN LEVEL < 2.0 UG/ML (10.0-30.0); ALBUMIN 3.5 GM/DL (3.2-5.2); ALT/SGPT 24 U/L (12-78); BILIRUBIN,DIRECT 0.1 MG/DL (0.0-0.2); BILIRUBIN,TOTAL 0.3 MG/DL (0.2-1.0); BLOOD UREA NITROGEN 12 MG/DL (7-18); CALCIUM LEVEL 9.2 MG/DL (8.8-10.2); CARBON DIOXIDE LEVEL 22 MEQ/L (21-32); CHLORIDE LEVEL 103 MEQ/L (98-107); CREATININE FOR GFR 0.81 MG/DL (0.70-1.30); ETHYL ALCOHOL (ETHANOL) 0.152 % (0.000-0.010); GLOMERULAR FILTRATION RATE > 60.0 (>49); GLUCOSE, FASTING 169 MG/DL (70-100); POTASSIUM SERUM 4.4 MEQ/L (3.5-5.1); SALICYLATE LEVEL < 1.7 MG/DL (5.0-30.0); SODIUM LEVEL 137 MEQ/L (136-145); TOTAL PROTEIN 7.5 GM/DL (6.4-8.2)
[2021-06-10 20:01] VITALS: BP 131/88
== END 2021-06-10 20:20 | disposition left against medical advice (07) ==
LOC: M ED 14:49
DX: F33.9 Major depressive disorder, recurrent, unspecified (principal); J45.909 Unspecified asthma, uncomplicated; K21.9 Gastro-esophageal reflux disease without esophagitis; N40.0 Benign prostatic hyperplasia without lower urinary tract symptoms; K50.90 Crohn's disease, unspecified, without complications; Z79.899 Other long term (current) drug therapy

== ENCOUNTER 2021-08-01 09:38 | Outpatient (CLI) | payer OTHER ==
[~2021-08-01] VITALS: Ht 162.6 cm; Wt 92.9 kg
[~2021-08-01 09:38] MED LIST changes: +VEDOLIZUMAB 300 MG in NS 250 ML IV ONE
[2021-08-01 09:40] VITALS: BP 152/92
[2021-08-01 11:20] VITALS: BP 136/70
== END 2021-08-01 11:20 | disposition home or self-care (01) ==
LOC: M INFU 09:38
PROVIDERS: ATTEND Internal Medicine Gastroenterology
DX: K51.919 Ulcerative colitis, unspecified with unspecified complications (principal)
CPT/HCPCS: 96365; J3380

== ENCOUNTER 2021-08-15 10:13 | Outpatient (CLI) | payer OTHER ==
[~2021-08-15] VITALS: Ht 162.6 cm; Wt 92.9 kg
[2021-08-15 10:20] VITALS: BP 147/77
[2021-08-15 11:27] VITALS: BP 128/59
== END 2021-08-15 11:30 | disposition home or self-care (01) ==
LOC: M INFU 10:13
PROVIDERS: ATTEND Internal Medicine Gastroenterology
DX: K51.919 Ulcerative colitis, unspecified with unspecified complications (principal)
CPT/HCPCS: 96365; J3380

== ENCOUNTER → 2021-08-22 | Outpatient (CLI) | payer OTHER ==
[~2021-08-22] MED LIST changes: -VEDOLIZUMAB 300 MG in NS 250 ML IV ONE
== END ==
LOC: M LABSMTC 09:33
PROVIDERS: ATTEND Anesthesiology
DX: Z01.818 Encounter for other preprocedural examination (principal); Z20.822 Contact with and (suspected) exposure to COVID-19

== ENCOUNTER 2021-08-24 09:30 | Day surgery (SDC) | payer OTHER ==
[~2021-08-24] VITALS: Ht 162.6 cm; Wt 87.5 kg
[~2021-08-24 09:30] MED LIST changes: -NS 1,000 ML IV ONE; +propofoL 500 MG/50 ML VIAL As Ordered ONE
[2021-08-24] MEDS ORDERED: NS 1,000 ML IV ONE (09:55)
[2021-08-24] MEDS ORDERED: ePHEDrine SULFATE 25 MG/5 ML(5MG/ML) SYRINGE As Ordered ONE (11:59)
[2021-08-24] MEDS ORDERED: PHENYLephrine 500MCG 5ML (100MCG/ML) SYRINGE As Ordered ONE (12:03)
[2021-08-24] MEDS ORDERED: propofoL 200 MG/20 ML VIAL As Ordered ONE ×2 (12:06→13:04)
[2021-08-24] MEDS ORDERED: fentaNYL 100 MCG/2 ML INJECTION As Ordered ONE (12:22)
[2021-08-24 13:00] VITALS: BP 128/76
== END 2021-08-24 13:00 | disposition home or self-care (01) ==
LOC: M OPP 09:30
PROVIDERS: ATTEND Internal Medicine Gastroenterology
DX: K51.40 Inflammatory polyps of colon without complications (principal); Z53.8 Procedure and treatment not carried out for other reasons; Z87.19 Personal history of other diseases of the digestive system; K92.1 Melena; K22.89 Other specified disease of esophagus; K44.9 Diaphragmatic hernia without obstruction or gangrene; K22.70 Barrett's esophagus without dysplasia; Z79.891 Long term (current) use of opiate analgesic; Z79.899 Other long term (current) drug therapy
CPT/HCPCS: 43239; 45380; 88305; J2370; J3010

== ENCOUNTER → 2021-08-24 | Day surgery (SDC) | payer OTHER ==
[~2021-08-24] MED LIST changes: +NS 1,000 ML IV ONE
== END | disposition home or self-care (01) ==
LOC: M OPP 08:57
PROVIDERS: ATTEND Internal Medicine Gastroenterology
DX: K22.70 Barrett's esophagus without dysplasia (principal)

== ENCOUNTER → 2022-08-27 | Outpatient (REF) | payer OTHER ==
[~2022-08-27] MED LIST changes: +MONT-5 PO; +NYST-38 SS; -NYST50SS SS; -SING10TA32 PO; -propofoL 500 MG/50 ML VIAL As Ordered ONE
[2022-08-27 18:35] LABS: BASO # 0.1 10^3/uL (0.0-0.2); BASO % 0.7 % (0.0-1.0); EOS # 0.3 10^3/uL (0.0-0.5); EOS % 3.7 % (0.0-3.0); HEMATOCRIT 41.3 % (42.0-52.0); HEMOGLOBIN 12.5 g/dl (13.5-17.5); LYMPH # 1.3 10^3/uL (1.5-5.0); LYMPH % 18.5 % (24.0-44.0); MEAN CORPUSCULAR HGB CONC 30.3 g/dl (32.0-36.5); MEAN CORPUSCULAR VOLUME 82.4 fl (80.0-96.0); MONO # 0.8 10^3/uL (0.0-0.8); MONO % 11.2 % (2.0-8.0); NEUTROPHILS # 4.6 10^3/uL (1.5-8.5); NEUTROPHILS % 65.6 % (36.0-66.0); PLATELET COUNT, AUTOMATED 262 10^3/uL (150-450); RED BLOOD COUNT 5.01 10^6/uL (4.30-6.10)
[2022-08-27 18:47] LABS: ERYTHROCYTE SEDIMENTATION RATE 25 mm/hr (0-20)
[2022-08-27 19:36] LABS: ALBUMIN 3.5 G/DL (3.2-5.2); ALKALINE PHOSPHATASE 109 U/L (46-116); ALT/SGPT 22 U/L (7.0-40); AST/SGOT 19 U/L (<34); BILIRUBIN,TOTAL 0.4 MG/DL (0.3-1.2); BLOOD UREA NITROGEN 10 MG/DL (9-23); C REACTIVE PROTEIN QUANTITATIV < 0.40 MG/DL (<1.0); CALCIUM LEVEL 9.7 MG/DL (8.3-10.6); CARBON DIOXIDE LEVEL 26 MMOL/L (20-31); CHLORIDE LEVEL 110 MMOL/L (98-107); CHOLESTEROL LEVEL 141 MG/DL (<200); CHOLESTEROL RISK RATIO 2.38 (<5); GLOMERULAR FILTRATION RATE > 60.0 (>49); GLUCOSE, FASTING 91 MG/DL (74-106); HDL CHOLESTEROL 59.2 MG/DL (>40); LDL CHOLESTEROL 65.8 MG/DL (<100); NON-HDL-C 81.8 MG/DL; POTASSIUM SERUM 4.9 MMOL/L (3.5-5.1); SODIUM LEVEL 137 MMOL/L (136-145); TOTAL PROTEIN 6.3 G/DL (5.7-8.2); TRIGLYCERIDES LEVEL 80 MG/DL (<150)
[2022-08-27 19:38] LABS: VITAMIN B12 LEVEL 303 PG/ML (211-911)
[2022-08-27 19:45] LABS: FOLATE 15.9 NG/ML (>5.4)
[2022-08-27 19:54] LABS: HEMOGLOBIN A1c 5.3 % (4.0-6.0)
== END ==
LOC: M SFHCCLAY 11:01
PROVIDERS: ATTEND Physician Assistant Medical
DX: K21.9 Gastro-esophageal reflux disease without esophagitis (principal); Z13.1 Encounter for screening for diabetes mellitus; K51.90 Ulcerative colitis, unspecified, without complications; N40.1 Benign prostatic hyperplasia with lower urinary tract symptoms

== ENCOUNTER → 2022-10-03 | Outpatient (CLI) | payer OTHER ==
[~2022-10-03] MED LIST changes: +ISOVUE-370 76% 100ML VIAL As Ordered ONE
== END ==
LOC: M RAD 12:41
PROVIDERS: ATTEND Nurse Practitioner Family
DX: R49.9 Unspecified voice and resonance disorder (principal); R13.10 Dysphagia, unspecified; Z98.1 Arthrodesis status; I65.21 Occlusion and stenosis of right carotid artery
CPT/HCPCS: 70491; Q9967

== ENCOUNTER 2023-05-22 20:11 | Emergency (ER) | payer OTHER ==
[~2023-05-22] VITALS: Ht 162.6 cm; Wt 81.8 kg
[~2023-05-22 20:11] MED LIST changes: -ISOVUE-370 76% 100ML VIAL As Ordered ONE
[2023-05-22] MEDS ORDERED: GABA-282 (20:30)
[2023-05-22 21:46] LABS: BASO # 0.1 10^3/uL (0.0-0.2); BASO % 0.8 % (0.0-1.0); EOS # 0.2 10^3/uL (0.0-0.5); EOS % 3.2 % (0.0-3.0); HEMATOCRIT 40.4 % (42.0-52.0); HEMOGLOBIN 12.6 g/dl (13.5-17.5); LYMPH # 1.6 10^3/uL (1.5-5.0); LYMPH % 25.4 % (24.0-44.0); MEAN CORPUSCULAR HEMOGLOBIN 25.9 pg (27.0-33.0); MEAN CORPUSCULAR HGB CONC 31.2 g/dl (32.0-36.5); MONO # 0.6 10^3/uL (0.0-0.8); MONO % 9.7 % (2.0-8.0); NEUTROPHILS # 3.8 10^3/uL (1.5-8.5); NEUTROPHILS % 60.7 % (36.0-66.0); PLATELET COUNT, AUTOMATED 213 10^3/uL (150-450); RED BLOOD COUNT 4.87 10^6/uL (4.30-6.10); WHITE BLOOD COUNT 6.3 10^3/uL (4.0-10.0)
[2023-05-22 21:50] LABS: C REACTIVE PROTEIN QUANTITATIV < 0.40 MG/DL (<1.0); CK-MB VALUE MASS 1.1 NG/ML (<3.6)
[2023-05-22] MEDS: IPRATROPIUM 0.5MG/ALBUTEROL 2.5MG INH SOL UD 3ML (DUONEB) NEB ONE (21:52)
[2023-05-22 21:59] LABS: PROCALCITONIN <0.04 ng/ml
[2023-05-22 22:00] LABS: ALBUMIN 3.6 G/DL (3.2-5.2); ALKALINE PHOSPHATASE 102 U/L (46-116); ALT/SGPT 21 U/L (7.0-40); AST/SGOT 27 U/L (<34); BILIRUBIN,DIRECT 0.2 MG/DL (<0.4); BILIRUBIN,TOTAL 0.4 MG/DL (0.3-1.2); BLOOD UREA NITROGEN < 5 MG/DL (9-23); CALCIUM LEVEL 9.3 MG/DL (8.3-10.6); CARBON DIOXIDE LEVEL 25 MMOL/L (20-31); CHLORIDE LEVEL 110 MMOL/L (98-107); CPK CREATINE PHOSPHOKINASE 115 U/L (46-171); CREATININE FOR GFR 0.82 MG/DL (0.70-1.30); D-DIMER QUANT 0.68 ug/mL (<0.5); GLOMERULAR FILTRATION RATE > 60.0 (>49); GLUCOSE, FASTING 114 MG/DL (74-106); INR 1.04; MB/CK RELATIVE INDEX 0.95 (< OR =4); POTASSIUM SERUM 4.5 MMOL/L (3.5-5.1); PROTHROMBIN TIME 13.3 SECONDS (12.5-14.5); SODIUM LEVEL 140 MMOL/L (136-145); TOTAL PROTEIN 6.6 G/DL (5.7-8.2)
[2023-05-22] MEDS ORDERED: ISOVUE-370 76% 100ML VIAL As Ordered ONE (22:05)
[2023-05-22] MEDS ORDERED: ALBU8.5H INH (23:56)
[2023-05-22] MEDS ORDERED: FLOM0.4C39 PO (23:56)
[2023-05-23 00:38] LABS: CK-MB VALUE MASS 1.1 NG/ML (<3.6)
[2023-05-23 00:41] LABS: CPK CREATINE PHOSPHOKINASE 106 U/L (46-171); MB/CK RELATIVE INDEX 1.03 (< OR =4)
[2023-05-23] MEDS ORDERED: PRED20TA PO (01:09)
[2023-05-23 01:22] VITALS: BP 126/88; TEMP 97.1; O2SAT 98
== END 2023-05-23 01:24 | disposition home or self-care (01) ==
LOC: M ED 20:11
DX: J45.901 Unspecified asthma with (acute) exacerbation (principal); N40.0 Benign prostatic hyperplasia without lower urinary tract symptoms; F10.10 Alcohol abuse, uncomplicated; Z91.048 Other nonmedicinal substance allergy status; Z79.52 Long term (current) use of systemic steroids; Z79.891 Long term (current) use of opiate analgesic; Z79.899 Other long term (current) drug therapy
CPT/HCPCS: 36415; 71046; 71275; 80048; 80076; 81001; 82550; 82553; 83605; 83880; 84145; 85025; 85379; 85610; 86140; 87040; 87077; 87186; 87486; 87581; 87633; 87798; 93005; 93041; 94640; 94760; 99284; Q9967

== ENCOUNTER → 2023-06-17 | Outpatient (CLI) | payer OTHER ==
[~2023-06-17] VITALS: Ht 162.6 cm; Wt 88.0 kg
[~2023-06-17] MED LIST changes: +ACETAMINOPHEN TAB 650MG DOSE (2X325MG) PO ONE; +ALBU8.5H INH; +GABA-282; +PRED20TA PO; +VEDOLIZUMAB 300 MG in NS 250 ML IV ONE; +diphenhydrAMINE 25MG CAP PO ONE
== END ==
LOC: M INFU 10:46
PROVIDERS: ATTEND Internal Medicine Gastroenterology
DX: K51.90 Ulcerative colitis, unspecified, without complications (principal); Z53.9 Procedure and treatment not carried out, unspecified reason

== ENCOUNTER → 2023-07-02 | Outpatient (CLI) | payer OTHER ==
[~2023-07-02] MED LIST changes: -ACETAMINOPHEN TAB 650MG DOSE (2X325MG) PO ONE; -VEDOLIZUMAB 300 MG in NS 250 ML IV ONE; -diphenhydrAMINE 25MG CAP PO ONE
== END ==
LOC: M RAD 09:39
PROVIDERS: ATTEND Nurse Practitioner Family
DX: K42.9 Umbilical hernia without obstruction or gangrene (principal)

== ENCOUNTER 2023-08-13 20:39 | Emergency (ER) | payer OTHER ==
[~2023-08-13] VITALS: Ht 162.6 cm; Wt 92.4 kg
[2023-08-13 21:12] VITALS: BP 129/95; TEMP 97.9; O2SAT 97
== END 2023-08-13 22:47 | disposition left against medical advice (07) ==
LOC: M ED 20:39
DX: Z53.21 Procedure and treatment not carried out due to patient leaving prior to being seen by health care provider (principal)

== ENCOUNTER 2023-12-05 22:56 | Emergency (ER) | payer OTHER ==
[~2023-12-05] VITALS: Ht 172.7 cm; Wt 91.6 kg
[~2023-12-05 22:56] MED LIST changes: +GABA-1172; +GABA-1172 PO; -GABA-282; -GABA-282 PO
[2023-12-05 23:30] LABS: BASO # 0.1 10^3/uL (0.0-0.2); BASO % 0.6 % (0.0-1.0); EOS # 0.2 10^3/uL (0.0-0.5); EOS % 1.9 % (0.0-3.0); HEMATOCRIT 43.6 % (42.0-52.0); HEMOGLOBIN 13.8 g/dl (13.5-17.5); LYMPH # 2.6 10^3/uL (1.5-5.0); MEAN CORPUSCULAR HEMOGLOBIN 26.5 pg (27.0-33.0); MEAN CORPUSCULAR HGB CONC 31.7 g/dl (32.0-36.5); MEAN CORPUSCULAR VOLUME 83.8 fl (80.0-96.0); MONO # 0.8 10^3/uL (0.0-0.8); MONO % 7.3 % (2.0-8.0); NEUTROPHILS # 7.1 10^3/uL (1.5-8.5); NEUTROPHILS % 65.6 % (36.0-66.0); PLATELET COUNT, AUTOMATED 276 10^3/uL (150-450); WHITE BLOOD COUNT 10.9 10^3/uL (4.0-10.0)
[2023-12-05 23:48] LABS: ALBUMIN 3.9 G/DL (3.2-5.2); ALKALINE PHOSPHATASE 112 U/L (46-116); ALT/SGPT 24 U/L (7.0-40); AST/SGOT 19 U/L (<34); BILIRUBIN,TOTAL 0.4 MG/DL (0.3-1.2); BLOOD UREA NITROGEN 9 MG/DL (9-23); CALCIUM LEVEL 9.8 MG/DL (8.3-10.6); CARBON DIOXIDE LEVEL 20 MMOL/L (20-31); CHLORIDE LEVEL 102 MMOL/L (98-107); CREATININE FOR GFR 0.74 MG/DL (0.70-1.30); GLOMERULAR FILTRATION RATE > 60.0 (>49); GLUCOSE, FASTING 130 MG/DL (74-106); SODIUM LEVEL 133 MMOL/L (136-145); TOTAL PROTEIN 7.3 G/DL (5.7-8.2)
[2023-12-05 23:56] LABS: ETHYL ALCOHOL (ETHANOL) 0.324 % (0.000-0.010)
[2023-12-06 00:20] LABS: AMPHETAMINES LEVEL URINE NEGATIVE (NEGATIVE)
[2023-12-06 00:21] LABS: BARBITURATES URINE NEGATIVE (NEGATIVE); BENZODIAZEPINES URINE NEGATIVE (NEGATIVE); CANNABINOIDS URINE NEGATIVE (NEGATIVE); COCAINE METABOLITE URINE NEGATIVE (NEGATIVE); METHADONE URINE NEGATIVE (NEGATIVE); OPIATES URINE NEGATIVE (NEGATIVE); PHENCYCLIDINE URINE NEGATIVE (NEGATIVE)
[2023-12-06] MEDS: BOOSTRIX VACCINE (TETANUS/DIPHTH/ACEL. PERTUSSIS) 0.5ML SYR IM ONE (01:54)
[2023-12-06] MEDS: LIDOCAINE W/EPINEPHRINE 1% 20ML VIAL SC ONE (02:20)
[2023-12-06 04:00] VITALS: BP 143/69; TEMP 97.9; O2SAT 95
== END 2023-12-06 06:08 | disposition home or self-care (01) ==
LOC: EDBD 22:56 → M ED 22:56
DX: S01.81XA Laceration without foreign body of other part of head, initial encounter (principal); F10.129 Alcohol abuse with intoxication, unspecified; W01.198A Fall on same level from slipping, tripping and stumbling with subsequent striking against other object, initial encounter; Y92.59 Other trade areas as the place of occurrence of the external cause; Y93.89 Activity, other specified; Y99.9 Unspecified external cause status; J30.89 Other allergic rhinitis; Z79.899 Other long term (current) drug therapy

== ENCOUNTER → 2024-01-08 | Outpatient (REF) | payer OTHER | LOC: M SFHCCLAY 10:24 | PROVIDERS: ATTEND Nurse Practitioner Family | DX: R35.0 Frequency of micturition (principal) ==

== ENCOUNTER 2024-02-20 21:55 | Emergency (ER) | payer MEDICAID, OTHER ==
[~2024-02-20] VITALS: Ht 162.6 cm; Wt 81.0 kg
[2024-02-20 23:39] LABS: AMPHETAMINES LEVEL URINE NEGATIVE (NEGATIVE); BARBITURATES URINE NEGATIVE (NEGATIVE); BENZODIAZEPINES URINE NEGATIVE (NEGATIVE)
[2024-02-20 23:40] LABS: CANNABINOIDS URINE NEGATIVE (NEGATIVE); COCAINE METABOLITE URINE NEGATIVE (NEGATIVE); METHADONE URINE NEGATIVE (NEGATIVE); OPIATES URINE NEGATIVE (NEGATIVE); PHENCYCLIDINE URINE NEGATIVE (NEGATIVE)
[2024-02-20 23:44] LABS: ALBUMIN 3.4 G/DL (3.2-5.2); ALKALINE PHOSPHATASE 81 U/L (40-129); ALT/SGPT 22 U/L (7.0-40); AST/SGOT 21 U/L (<34); BILIRUBIN,DIRECT 0.1 MG/DL (<0.4); BILIRUBIN,TOTAL 0.4 MG/DL (0.3-1.2); BLOOD UREA NITROGEN 10 MG/DL (9-23); CALCIUM LEVEL 9.6 MG/DL (8.3-10.6); CARBON DIOXIDE LEVEL 22 MMOL/L (20-31); CHLORIDE LEVEL 103 MMOL/L (98-107); CREATININE FOR GFR 0.65 MG/DL (0.70-1.30); GLOMERULAR FILTRATION RATE > 60.0 (>49); GLUCOSE, FASTING 93 MG/DL (74-106); POTASSIUM SERUM 3.9 MMOL/L (3.5-5.1); SODIUM LEVEL 135 MMOL/L (136-145)
[2024-02-20 23:46] LABS: THYROID STIMULATING HORMONE 1.392 uIU/ML (0.55-4.78)
[2024-02-21 00:06] LABS: BASO % 0.5 % (0.0-1.0); EOS # 0.2 10^3/uL (0.0-0.5); EOS % 2.5 % (0.0-3.0); HEMATOCRIT 39.6 % (42.0-52.0); HEMOGLOBIN 12.5 g/dl (13.5-17.5); LYMPH # 1.1 10^3/uL (1.5-5.0); LYMPH % 14.1 % (24.0-44.0); MEAN CORPUSCULAR HGB CONC 31.6 g/dl (32.0-36.5); MEAN CORPUSCULAR VOLUME 82.3 fl (80.0-96.0); MONO # 0.7 10^3/uL (0.0-0.8); MONO % 9.2 % (2.0-8.0); NEUTROPHILS # 5.5 10^3/uL (1.5-8.5); PLATELET COUNT, AUTOMATED 263 10^3/uL (150-450); RED BLOOD COUNT 4.81 10^6/uL (4.30-6.10); WHITE BLOOD COUNT 7.5 10^3/uL (4.0-10.0)
[2024-02-21 00:26] LABS: CPK CREATINE PHOSPHOKINASE 76 U/L (46-171)
[2024-02-21 00:29] LABS: ETHYL ALCOHOL (ETHANOL) 0.286 % (0.000-0.010)
[2024-02-21] MEDS ORDERED: ISOVUE-370 76% 100ML VIAL As Ordered ONE (00:35)
[2024-02-21 02:17] LABS: PARTIAL THROMBOPLASTIN TIME 25.2 SECONDS (24.8-34.2); PROTHROMBIN TIME 13.5 SECONDS (12.5-14.5)
[2024-02-21] MEDS: PANTOPRAZOLE 40MG VIAL IV ONE (03:52)
[2024-02-21 07:21] VITALS: BP 116/73; TEMP 97.3; O2SAT 97
== END 2024-02-21 07:54 | disposition home or self-care (01) ==
LOC: M ED 21:55
DX: F10.129 Alcohol abuse with intoxication, unspecified (principal); K21.9 Gastro-esophageal reflux disease without esophagitis; K27.9 Peptic ulcer, site unspecified, unspecified as acute or chronic, without hemorrhage or perforation; K57.30 Diverticulosis of large intestine without perforation or abscess without bleeding; K44.9 Diaphragmatic hernia without obstruction or gangrene; Z79.899 Other long term (current) drug therapy
CPT/HCPCS: 70450; 72125; 74174; 80048; 80076; 80307; 81001; 82077; 82550; 84443; 85025; 85610; 85730; 86850; 86900; 86901; 87486; 87581; 87633; 87798; 94760; 96374; 99284; J2470; Q9967

== ENCOUNTER → 2024-04-05 | Outpatient (REF) | payer OTHER ==
[2024-04-05 13:48] LABS: AMORPHOUS SEDIMENT SMALL (NEGATIVE); APPEARANCE, URINE HAZY (CLEAR); BACTERIA, URINE AUTO NEGATIVE (NEGATIVE); BILIRUBIN, URINE AUTO NEGATIVE (NEGATIVE); BLOOD, URINE BLOOD NEGATIVE (NEGATIVE); COLOR, URINE YELLOW (YELLOW); GLUCOSE, URINE (UA) AUTO NEGATIVE (NEGATIVE); KETONE, URINE AUTO NEGATIVE (NEGATIVE); LEUKOCYTE ESTERASE, URINE AUTO NEGATIVE (NEGATIVE); MUCUS, URINE SMALL (NEGATIVE); NITRITE, URINE AUTO NEGATIVE (NEGATIVE); PROTEIN, URINE AUTO NEGATIVE (NEGATIVE); RBC, URINE AUTO 0 /HPF (0-3); SPECIFIC GRAVITY URINE AUTO 1.011 (1.002-1.035); SQUAMOUS EPITHELIAL CELL UR AU 0 /HPF (0-6); UROBILINOGEN, URINE AUTO 0.2 mg/dL (0.0-2.0); WBC, URINE AUTO 2 /HPF (0-3)
== END ==
LOC: M LAB REF 12:41
PROVIDERS: ATTEND Physician Assistant Medical
DX: N39.0 Urinary tract infection, site not specified (principal)

== ENCOUNTER → 2024-04-05 | Outpatient (CLI) | payer OTHER | LOC: M RAD 11:41 | PROVIDERS: ATTEND Nurse Practitioner Family | DX: R51.9 Headache, unspecified (principal) ==

== ENCOUNTER 2024-06-10 22:51 | Emergency (ER) | payer OTHER ==
[~2024-06-10] VITALS: Ht 162.6 cm; Wt 102.0 kg
[2024-06-10 23:45] LABS: HEMATOCRIT 41.3 % (42.0-52.0); HEMOGLOBIN 13.1 g/dl (13.5-17.5); MEAN CORPUSCULAR HEMOGLOBIN 25.4 pg (27.0-33.0); MEAN CORPUSCULAR HGB CONC 31.7 g/dl (32.0-36.5); PLATELET COUNT, AUTOMATED 306 10^3/uL (150-450); RED BLOOD COUNT 5.16 10^6/uL (4.30-6.10)
[2024-06-11 00:02] LABS: AMPHETAMINES LEVEL URINE NEGATIVE (NEGATIVE); BARBITURATES URINE NEGATIVE (NEGATIVE); BENZODIAZEPINES URINE NEGATIVE (NEGATIVE); CANNABINOIDS URINE NEGATIVE (NEGATIVE); COCAINE METABOLITE URINE NEGATIVE (NEGATIVE); METHADONE URINE NEGATIVE (NEGATIVE); OPIATES URINE NEGATIVE (NEGATIVE); PHENCYCLIDINE URINE NEGATIVE (NEGATIVE)
[2024-06-11 00:18] LABS: SALICYLATE LEVEL < 3.0 MG/DL (<30)
[2024-06-11] MEDS: IPRATROPIUM 0.5MG/ALBUTEROL 2.5MG INH SOL UD 3ML NEB ONE (00:18)
[2024-06-11 00:20] LABS: THYROID STIMULATING HORMONE 1.198 uIU/ML (0.55-4.78)
[2024-06-11 00:50] LABS: ALBUMIN 3.4 G/DL (3.2-5.2); ALKALINE PHOSPHATASE 112 U/L (40-129); ALT/SGPT 91 U/L (7.0-40); AST/SGOT 91 U/L (<34); BILIRUBIN,DIRECT 0.2 MG/DL (<0.4); BILIRUBIN,TOTAL 0.5 MG/DL (0.3-1.2); BLOOD UREA NITROGEN < 5 MG/DL (9-23); CALCIUM LEVEL 9.8 MG/DL (8.3-10.6); CARBON DIOXIDE LEVEL 20 MMOL/L (20-31); CHLORIDE LEVEL 102 MMOL/L (98-107); CREATININE FOR GFR 0.69 MG/DL (0.70-1.30); ETHYL ALCOHOL (ETHANOL) 0.302 % (0.000-0.010); GLOMERULAR FILTRATION RATE > 90.0 (>49); GLUCOSE, FASTING 89 MG/DL (74-106); POTASSIUM SERUM 4.3 MMOL/L (3.5-5.1); SODIUM LEVEL 135 MMOL/L (136-145); TOTAL PROTEIN 6.9 G/DL (5.7-8.2)
[2024-06-11 06:17] VITALS: BP 115/68; TEMP 97; O2SAT 99
== END 2024-06-11 06:19 | disposition home or self-care (01) ==
LOC: EDBD 22:51 → EDSEX 22:51 → M ED 22:51
DX: F10.120 Alcohol abuse with intoxication, uncomplicated (principal); F19.10 Other psychoactive substance abuse, uncomplicated; M50.323 Other cervical disc degeneration at C6-C7 level; J32.0 Chronic maxillary sinusitis; W19.XXXA Unspecified fall, initial encounter; Y92.9 Unspecified place or not applicable; Y93.9 Activity, unspecified; Y99.9 Unspecified external cause status

== ENCOUNTER → 2024-07-20 | Outpatient (REF) | payer OTHER ==
[~2024-07-20] MED LIST changes: -AMBI10TA PO; -FLOM0.4C39 PO; +TAMS-18 PO; +ZOLP-533 PO
[2024-07-20 18:05] LABS: APPEARANCE, URINE HAZY (CLEAR); BACTERIA, URINE AUTO NEGATIVE (NEGATIVE); BILIRUBIN, URINE AUTO NEGATIVE (NEGATIVE); BLOOD, URINE BLOOD NEGATIVE (NEGATIVE); COLOR, URINE YELLOW (YELLOW); GLUCOSE, URINE (UA) AUTO NEGATIVE (NEGATIVE); KETONE, URINE AUTO NEGATIVE (NEGATIVE); LEUKOCYTE ESTERASE, URINE AUTO NEGATIVE (NEGATIVE); MUCUS, URINE SMALL (NEGATIVE); NITRITE, URINE AUTO NEGATIVE (NEGATIVE); PROTEIN, URINE AUTO NEGATIVE (NEGATIVE); RBC, URINE AUTO 1 /HPF (0-3); SPECIFIC GRAVITY URINE AUTO 1.013 (1.002-1.035); SQUAMOUS EPITHELIAL CELL UR AU 0 /HPF (0-6); UROBILINOGEN, URINE AUTO 0.2 mg/dL (0.0-2.0); WBC, URINE AUTO 0 /HPF (0-3)
== END ==
LOC: M SFHCCLAY 13:47
PROVIDERS: ATTEND Physician Assistant
DX: R34 Anuria and oliguria (principal)